=== PATIENT | female | born 1955 | race Caucasian/White ===

== ENCOUNTER → 2016-08-08 | Outpatient (CLI) | payer OTHER, MEDICAID ==
[~2016-08-08] VITALS: Ht 185.4 cm; Wt 53.5 kg
[~2016-08-08] MED LIST: CHOL20007 OR; DULO20CA PO; LEVO125T6 PO
[2016-08-08 10:30] VITALS: BP 135/84
[2016-08-08 16:18] LABS: Basophils # (auto) 0 uL; Basophils % (auto) 0.4 % (0.0-2.0); Eosinophils # (auto) 0.2 uL; Eosinophils % (auto) 2.3 % (0.0-7.0); Hemoglobin 14.8 g/dL (12.2-16.2); Lymphocytes # (auto) 1.8 uL; Lymphocytes % (auto) 25.9 % (10.0-50.0); Mean Corpuscular Hgb Conc. 32.3 g/dL (32.0-36.0); Mean Platelet Volume 8.2 fL (7.4-10.4); Monocytes # (auto) 0.4 uL; Monocytes % (auto) 6.4 % (0.0-12.0); Neutrophils # (auto) 4.5 uL; Platelet Count (auto) 224 10^3/uL (140-450); Red Cell Distribution Width 13.4 % (11.6-16.0); White Blood Cell 6.9 10^3/uL (4.4-10.8)
[2016-08-08 16:32] LABS: BUN/Creatinine Ratio 12.5; Calcium 9.7 mg/dL (8.5-10.1); Potassium 4.3 mmol/L (3.5-5.1)
[2016-08-08 16:48] LABS: INR 1.07 (0.9-1.15); Partial Thromboplastin Time 27.1 sec (22.64-33.71)
== END | disposition home or self-care (01) ==
LOC: Rad HDHVI 10:13
PROVIDERS: ATTEND Internal Medicine Cardiovascular Disease
DX: I10 Essential (primary) hypertension (principal); D64.9 Anemia, unspecified; R79.1 Abnormal coagulation profile
CPT/HCPCS: 36415; 71020; 80048; 85025; 85049; 85610; 85730; G0463

== ENCOUNTER → 2016-08-16 | Day surgery (SDC) | payer OTHER, MEDICAID ==
[~2016-08-16] VITALS: Ht 185.4 cm; Wt 53.5 kg
[~2016-08-16] MED LIST changes: +IOHEXOL 350 MG/ML 100ML IJ ONE; +LIDOCAINE 2%HCL (LOCAL ANESTH.) INJ 20ML MDV ONE; +MIDAZOLAM HCL 1MG/1ML-2 ML VIAL ONE; +fentaNYL CITRATE 100 MCG/2 ML VL ONE
== END | disposition home or self-care (01) ==
LOC: CATH 10:52
PROVIDERS: ATTEND Internal Medicine Cardiovascular Disease
DX: R94.39 Abnormal result of other cardiovascular function study (principal); F17.200 Nicotine dependence, unspecified, uncomplicated; E78.5 Hyperlipidemia, unspecified; I25.10 Atherosclerotic heart disease of native coronary artery without angina pectoris
CPT/HCPCS: 93458; C1894; J1644; J2250; J3010; J7030; Q9967

== ENCOUNTER 2018-09-14 19:08 | Emergency (ER) | payer OTHER, MEDICAID ==
[~2018-09-14] VITALS: Ht 182.9 cm; Wt 81.6 kg
[~2018-09-14 19:08] MED LIST changes: -IOHEXOL 350 MG/ML 100ML IJ ONE; -LEVO125T6 PO; +LEVO125T7 PO; -LIDOCAINE 2%HCL (LOCAL ANESTH.) INJ 20ML MDV ONE; -MIDAZOLAM HCL 1MG/1ML-2 ML VIAL ONE; -fentaNYL CITRATE 100 MCG/2 ML VL ONE
[2018-09-14 20:02] LABS: Basophils # (auto) 0.1 uL; Basophils % (auto) 0.6 % (0.0-2.0); Eosinophils # (auto) 0.2 uL; Eosinophils % (auto) 1.8 % (0.0-7.0); Hematocrit 47.1 % (36.0-46.0); Hemoglobin 16.1 g/dL (12.2-16.2); Lymphocytes # (auto) 2.5 uL; Lymphocytes % (auto) 25.1 % (10.0-50.0); Mean Corpuscular Hemoglobin 32.7 pg (28.0-32.0); Mean Corpuscular Hgb Conc. 34.2 g/dL (32.0-36.0); Mean Corpuscular Volume 95.7 fL (80.0-100.0); Monocytes # (auto) 0.6 uL; Monocytes % (auto) 6.3 % (0.0-12.0); Neutrophils # (auto) 6.6 uL; Neutrophils % (auto) 66.2 % (37.0-80.0); Nucleated Red Blood Cells % 0.2 %; Platelet Count (auto) 180 10^3/uL (140-450); Red Blood Cells 4.93 10^6/uL (4.0-5.20); Red Cell Distribution Width 13.2 % (11.8-14.3); White Blood Cell 9.9 10^3/uL (4.4-10.8)
[2018-09-14 20:23] LABS: Albumin 4.2 g/dL (3.4-5.0); Anion Gap 5 (5-15); Blood Urea Nitrogen 12 mg/dL (7-18); Calcium 10.3 mg/dL (8.5-10.1); Carbon Dioxide 26 mmol/L (21-32); Chloride 110 mmol/L (98-107); Glucose 110 mg/dL (74-106); Magnesium 2.5 mg/dL (1.6-2.6); Potassium 4.1 mmol/L (3.5-5.1); Sodium 141 mmol/L (136-145)
[2018-09-14 20:26] LABS: Alanine Aminotransferase 14 U/L (13-56); GFR African American 72 mL/min; GFR Non-African American 60 mL/min
[2018-09-14 20:32] LABS: INR 0.97 (0.9-1.15); Partial Thromboplastin Time 26.9 sec (23.78-33.04); Prothrombin Time 10.4 sec (9.27-12.13)
[2018-09-14 20:37] LABS: Alkaline Phosphatase 70 U/L (45-117); Aspartate Aminotransferase 11 U/L (15-37); Bilirubin, Total 0.3 mg/dL (0.2-1.0); Total Protein 8.1 g/dL (6.4-8.2)
[2018-09-14] MEDS ORDERED: ACETAMINOPHEN 325 MG TAB PO ONE (23:00)
[2018-09-14] MEDS ORDERED: LORazepam 0.5 MG TAB PO ONE (23:15)
[2018-09-15 00:15] LABS: INR 0.95 (0.9-1.15); Partial Thromboplastin Time 26.6 sec (23.78-33.04); Prothrombin Time 10.2 sec (9.27-12.13)
[2018-09-15 00:55] VITALS: BP 132/86
== END 2018-09-15 00:57 | disposition home or self-care (01) ==
LOC: EDBD 19:08 → ER 19:16
DX: F41.9 Anxiety disorder, unspecified (principal); R00.2 Palpitations; F32.9 Major depressive disorder, single episode, unspecified; F17.210 Nicotine dependence, cigarettes, uncomplicated; R51 Headache; F12.10 Cannabis abuse, uncomplicated; Z86.39 Personal history of other endocrine, nutritional and metabolic disease
CPT/HCPCS: 36415; 71045; 80053; 83735; 83880; 84443; 84484; 85025; 85379; 85610; 85730; 93005

== ENCOUNTER 2019-10-01 21:50 | Emergency (ER) | payer OTHER, MEDICAID | END 2019-10-01 22:00 | disposition left against medical advice (07) | LOC: ER 21:52 | DX: Z02.83 Encounter for blood-alcohol and blood-drug test (principal); Z53.21 Procedure and treatment not carried out due to patient leaving prior to being seen by health care provider ==

== ENCOUNTER 2023-04-06 13:44 | Emergency (ER) | payer OTHER, MEDICAID ==
[~2023-04-06] VITALS: Ht 172.7 cm; Wt 101.1 kg
[2023-04-06 14:16] VITALS: PULSE 97; RESP 18; O2SAT 97
[2023-04-06] MEDS ORDERED: HYDR-4902 PO ×3 (14:41→15:41)
[2023-04-06] MEDS ORDERED: KETOROLAC TROMETH 60MG/2ML VIAL IM ONE (14:45)
[2023-04-06 15:30] VITALS: BP 149/87; PULSE 79; RESP 18; TEMP 99.3; O2SAT 94
== END 2023-04-06 15:42 | disposition home or self-care (01) ==
LOC: ER 13:44
DX: G89.29 Other chronic pain (principal); M54.59 Other low back pain; F41.9 Anxiety disorder, unspecified; F32.9 Major depressive disorder, single episode, unspecified; Z76.0 Encounter for issue of repeat prescription; Z79.899 Other long term (current) drug therapy; Z91.040 Latex allergy status
CPT/HCPCS: 96372; 99283; J1885